=== PATIENT | male | born 1970 | race Caucasian/White ===

== ENCOUNTER 2017-03-19 08:54 | Emergency (ER) | payer BC ==
[2017-03-19 09:07] VITALS: TEMP 98.8; BMI 33.5
--- NOTE | 2017-03-19 09:26 | PDOC ---
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 Patient reports back pain began yesterday with a sudden onset while twisting. He reports pain is worse with movement, specifically left sided movement. Today, patient reports he was walking to the bathroom when his back pain became worse. He sat down because he felt like he was going to pass out. states that she found the patient in the bathroom passed out for about a minute. Partner reports the patient was sitting upright the entire time, but patient woke up after splashed cold water on him. Denies urinary incontinence, loss of muscle tone, convulsions. Denies numbness, tingling, weakness. Denies headache, dizziness. Denies fever, chills. Denies N/V/D. - Physicial Exam PE: 03/19/17 10:43 GENERAL: Awake, alert, and fully oriented, in no acute distress HEAD: No signs of trauma EYES: PERRLA, EOMI, sclera anicteric, conjunctiva clear ENT: Auricles normal inspection, hearing grossly normal, nares patent, oropharynx clear without exudates. Moist mucosa NECK: Normal ROM, supple, no lymphadenopathy, JVD, or masses LUNGS: Breath sounds equal, clear to auscultation bilaterally. No wheezes, and no crackles HEART: Regular rate and rhythm, normal S1 and S2, no murmurs, rubs or gallops ABDOMEN: Soft, nontender, normoactive bowel sounds. No guarding, no rebound. No masses EXTREMITIES: Normal range of motion, no edema. No clubbing or cyanosis. No cords, erythema, or tenderness BACK: Soft tissue tenderness on left lateral low back NEUROLOGICAL: Cranial nerves II through XII grossly intact. Normal speech, normal gait SKIN: Warm, Dry, normal turgor, no rashes or lesions noted. - Medical Decision Making 03/19/17 10:16 Documentation prepared by Jennifer Hickman, acting as medical information specialist for Tammy Lomeli MD. <Jennifer Hickman - Last Filed: 03/19/17 10:43> - Resident Resident Name: Shady Foote - ED Attending Attestation I have performed the following: I have examined & evaluated the patient, The case was reviewed & discussed with the resident, I agree w/resident's findings & plan, Exceptions are as noted - Medical Decision Making Suspect MSK origin for pain, as it is reproducible, and started after he made a twisting motion with his torso. Syncope was likely vasovagal due to severe pain. Presentation is atypical for ACS and dissection. Will treat with analgesics and muscle relaxers. Stable for DC home. <Tammy Lomeli - Last Filed: 03/19/17 16:03>
[2017-03-19 10:08] LABS: BASOPHIL 0.5 % (0-2.0); EOSINOPHIL 1.8 % (0-4.5); MCH 22.5 pg (25.7-33.7); MCHC 31.1 g/dl (32.0-35.9); MEAN CELL VOLUME 72.4 fl (80-96); MEAN PLT VOLUME 8.6 fl (7.5-11.1); NEUTROPHILS 73.4 % (42.8-82.8); PLATELET COUNT 237 K/MM3 (134-434); RDW 12.9 % (11.9-15.9); WHITE BLOOD COUNT 8.8 K/mm3 (4.0-10.0)
[2017-03-19] MEDS ORDERED: KETOROLAC TROMETHAMINE 30 MG/1 ML VIAL IVPUSH ONE (10:16)
[2017-03-19] MEDS ORDERED: METHOCARBAMOL 500 MG TABLET PO ONE (10:16)
[2017-03-19 10:22] LABS: INR 1.13 (0.82-1.09); PROTHROMBIN TIME (PATIENT) 12.5 SEC (9.98-11.88)
[2017-03-19] MEDS ORDERED: KETOROLAC TROMETHAMINE 30 MG/1 ML VIAL ONE (10:22)
[2017-03-19] MEDS ORDERED: METHOCARBAMOL 500 MG TABLET ONE (10:22)
--- NOTE | 2017-03-19 10:29 | PDOC ---
History of Present Illness - General Chief Complaint: Syncope/Near Syncope Stated Complaint: BACK PAIN Time Seen by Provider: 03/19/17 09:10 History Source: Patient Exam Limitations: No Limitations - History of Present Illness Initial Comments: 03/19/17 10:23 Patient is a 46M with history of a pituitary tumor removal here today complaining of back pain and syncope. The back pain started yesterday suddenly when the patient twisted and bent over to iron clothes. The pain was located in his lumbar region, left more than right. It gets worse with left leg movement. He denies nausea, vomiting, fevers, urinary incontinence/retention, saddle anesthesia and iv drug use. For the syncope, he was in the bathroom this morning when his back started hurting. He felt lightheaded and sat down in order to keep from falling. He is not sure if he loss consciousness. He was confused for about thirty seconds after the event, but was back to baseline quickly. He was interactive with his , never lost muscle tone, and did not convulse. He denies any chest pain, shortness of breath or diaphoresis before or after the event. Past History - Past Medical History Allergies/Adverse Reactions: Allergies Allergy/AdvReac Type Severity Reaction Status Date / Time No Known Allergies Allergy Verified 03/19/17 09:27 Home Medications: Ambulatory Orders NK [No Known Home Medication] 03/19/17 Other medical history: none - Suicide/Smoking/Psychosocial Hx Smoking History: Never smoked Information on smoking cessation initiated: No Hx Alcohol Use: No Drug/Substance Use Hx: No Review of Systems - Review of Systems Comments:: 03/19/17 10:29 GENERAL/CONSTITUTIONAL: No fever or chills. No weakness. HEAD, EYES, EARS, NOSE AND THROAT: No change in vision. No sore throat. CARDIOVASCULAR: No chest pain or shortness of breath RESPIRATORY: No cough, wheezing, or hemoptysis. GASTROINTESTINAL: No nausea, vomiting, diarrhea or constipation. GENITOURINARY: No dysuria, frequency, or change in urination. MUSCULOSKELETAL: No joint or muscle swelling or pain. Positive for back pain. SKIN: No rash NEUROLOGIC: Positive for headache. Negative for vertigo, loss of consciousness, or change in strength/sensation. ENDOCRINE: No increased thirst. No abnormal weight change HEMATOLOGIC/LYMPHATIC: No anemia, easy bleeding, or history of blood clots. ALLERGIC/IMMUNOLOGIC: No hives or skin allergy. *Physical Exam - Vital Signs Last Vital Signs Temp Pulse Resp BP Pulse Ox 98.8 F 66 18 117/63 100 03/19/17 09:03 03/19/17 09:03 03/19/17 09:03 03/19/17 09:03 03/19/17 09:03 - Physical Exam Comments: 03/19/17 10:31 GENERAL: Awake, alert, and fully oriented, in no acute distress HEAD: No signs of trauma, normocephalic, atraumatic EYES: PERRLA, EOMI, sclera anicteric, conjunctiva clear ENT: Auricles normal inspection, hearing grossly normal, nares patent, oropharynx clear without exudates. Moist mucosa NECK: Normal ROM, supple, no lymphadenopathy, JVD, or masses, no midline tenderness BACK: Nontender in midline, tender in paraspinal lumbar region, no step offs or spinal abnormalities appreciated LUNGS: No distress, speaks full sentences, clear to auscultation bilaterally HEART: Regular rate and rhythm, normal S1 and S2, no murmurs, rubs or gallops, peripheral pulses normal and equal bilaterally. ABDOMEN: Soft, nontender, normoactive bowel sounds. No guarding, no rebound. No masses EXTREMITIES: Normal inspection, Normal range of motion, no edema. No clubbing or cyanosis. NEUROLOGICAL: Cranial nerves II through XII grossly intact. Normal speech, normal gait, no focal sensorimotor deficits SKIN: Warm, Dry, normal turgor, no rashes or lesions noted. ED Treatment Course - LABORATORY CBC & Chemistry Diagram: 03/19/17 09:45 03/19/17 09:45 - ADDITIONAL ORDERS Additional order review: 03/19/17 09:45 RBC 5.60 MCV 72.4 L MCHC 31.1 L RDW 12.9 MPV 8.6 Neutrophils % 73.4 Lymphocytes % 19.0 Monocytes % 5.3 Eosinophils % 1.8 Basophils % 0.5 - RADIOLOGY Radiology Studies Ordered: Category Date Time Status CHEST X-RAY PORTABLE* [RAD] Stat Radiology 03/19/17 09:40 Completed Medical Decision Making - Medical Decision Making 03/19/17 10:32 46M with history of distant pituitary tumor removal here today complaining of syncope and back pain. Vital signs normal and stable, no current chest pain and shortness of breath. Will evaluate syncope with labs, cxr, and ecg. Differential includes, but is not limited to: vasovagal, acs, arrythmia. Syncope in the setting of back pain can be concerning for dissection, but has clear mechanism of musculoskeletal injury and I am able to reproduce his pain. No red flags for his back pain. Will treat the pain with toradol and robaxin. ECG shows normal sinus rhythm, normal rate, normal axis, no st elevations. Shows t-wave inversions in III and V1, otherwise normal. Reassuring EKG. 03/19/17 10:35 CXR shows no acute cardiopulmonary process, no cardiomegaly. 03/19/17 11:35 UA negative. Will discharge with syncope and back pain precautions. Patient is alert and ambulatory at discharge. *DC/Admit/Observation/Transfer Diagnosis at time of Disposition: Back pain Qualifiers: Back pain location: low back pain Chronicity: acute Back pain laterality: bilateral Sciatica presence: without sciatica Qualified Code(s): M54.5 - Low back pain Syncope Qualifiers: Syncope type: vasovagal syncope Qualified Code(s): R55 - Syncope and collapse - Discharge Dispostion Disposition: HOME Condition at time of disposition: Good Admit: No - Referrals Referrals: Garrett Rolon MD [Primary Care Provider] - - Patient Instructions Printed Discharge Instructions: DI for Syncope in Adults (Fainting), DI for Low Back Pain
[2017-03-19 10:31] LABS: ANION GAP 5 (8-16); BILIRUBIN,TOTAL 0.6 mg/dL (0.2-1.0); CALCIUM 8.9 mg/dL (8.5-10.1); CO2 30 mmol/L (21-32); CPK 95 IU/L (39-308); CREATININE 0.9 mg/dL (0.7-1.3); GLUCOSE,RANDOM 98 mg/dL (74-106); MAGNESIUM 2.1 mg/dL (1.8-2.4); SGOT/AST 21 U/L (15-37); SGPT/ALT 36 U/L (12-78); TOT PROT 7.7 g/dl (6.4-8.2)
[2017-03-19 10:33] LABS: ALK PHOS 88 U/L (45-117); TROPONIN I < 0.02 ng/ml (0.00-0.05)
[2017-03-19 11:05] LABS: URINE APPEARANCE CLEAR; URINE BILIRUBIN NEGATIVE (NEGATIVE); URINE BLOOD NEGATIVE (NEGATIVE); URINE COLOR STRAW; URINE GLUCOSE (UA) NEGATIVE (NEGATIVE); URINE KETONE NEGATIVE (NEGATIVE); URINE LEUK ESTERASE NEGATIVE (NEGATIVE); URINE NITRITE NEGATIVE (NEGATIVE); URINE PROTEIN NEGATIVE (NEGATIVE); URINE UROBILINOGEN NEGATIVE mg/dL (0.2-1.0)
[2017-03-19 12:02] VITALS: BP 125/73; PULSE 61
--- NOTE | 2017-03-19 20:44 | EKG ---
Test Reason : Blood Pressure : / mmHG Vent. Rate : 066 BPM Atrial Rate : 066 BPM P-R Int : 194 ms QRS Dur : 078 ms QT Int : 386 ms P-R-T Axes : 056 010 014 degrees QTc Int : 404 ms NORMAL SINUS RHYTHM ANTEROSEPTAL INFARCT , AGE UNDETERMINED ABNORMAL ECG NO PREVIOUS ECGS AVAILABLE REPEAT EKG IF CLINICALLY INDICATED Confirmed by SEVEN WATERS MD ([id number]) on 03/19/2017 8:43:40 PM Referred By: Confirmed By:SEVEN WATERS MD
== END 2017-03-19 12:03 | disposition home or self-care (01) ==
LOC: JER 08:54
PROC: 3E0333Z Introduction of Anti-inflammatory into Peripheral Vein, Percutaneous Approach (ICD-10-PCS; principal; 2017-03-19)
DX: M54.5 Low back pain (principal); R55 Syncope and collapse; X50.0XXA Overexertion from strenuous movement or load, initial encounter; Y93.E4 Activity, ironing; Y92.031 Bathroom in apartment as the place of occurrence of the external cause; Y99.8 Other external cause status
CPT/HCPCS: 36415; 71010-TC; 80053; 81003; 83735; 84484; 85025; 85610; 93005; 93010; 99285-25

== ENCOUNTER 2021-08-18 19:37 | Emergency (ER) | payer BC, OTHER ==
[2021-08-18 19:45] VITALS: TEMP 97; BMI 35.5
[2021-08-18] MEDS ORDERED: DIPHTH,PERTUSS(ACELL),TET 0.5 ML DISP.SYRIN IM ONE ×2 (20:07→20:44)
[2021-08-18 21:23] VITALS: BP 132/90; PULSE 68
== END 2021-08-18 21:40 | disposition home or self-care (01) ==
LOC: JERFT 19:37
PROC: 0HQGXZZ Repair Left Hand Skin, External Approach (ICD-10-PCS; principal; 2021-08-18)
PROC: 3E0234Z Introduction of Serum, Toxoid and Vaccine into Muscle, Percutaneous Approach (ICD-10-PCS; 2021-08-18)
DX: S61.412A Laceration without foreign body of left hand, initial encounter (principal); W26.8XXA Contact with other sharp object(s), not elsewhere classified, initial encounter
CPT/HCPCS: 12001; 90471; 90715; 99282-25